=== PATIENT | male | born 1960 | race Caucasian/White ===

== ENCOUNTER 2023-09-29 10:13 | Emergency (ER) | payer MEDICAID, OTHER ==
[~2023-09-29] VITALS: Ht 182.9 cm; Wt 118.0 kg
[2023-09-29 11:52] VITALS: BP 126/83; PULSE 79; RESP 20; TEMP 97.1; O2SAT 100
[2023-09-29] MEDS ORDERED: LIDOCAINE 1% (LOCAL ANESTH.) PF 5ml SDV ID ONE (12:15)
[2023-09-29] MEDS ORDERED: NEOMYCIN-BACITRACIN-POLYM UNITDOSE PKG TOP OINT TOP ONE (12:15)
[2023-09-29] MEDS ORDERED: CEPH500C PO (13:24)
[2023-09-29] MEDS ORDERED: ACET500T58 PO (13:24)
== END 2023-09-29 13:50 | disposition home or self-care (01) ==
LOC: ER 10:13
DX: S01.81XA Laceration without foreign body of other part of head, initial encounter (principal); W18.09XA Striking against other object with subsequent fall, initial encounter; Y93.01 Activity, walking, marching and hiking; Y92.89 Other specified places as the place of occurrence of the external cause; Y99.8 Other external cause status
CPT/HCPCS: 12015; 70450; 72125